=== PATIENT | male | born 1970 | race Caucasian/White ===

== ENCOUNTER 2017-10-26 17:54 | Inpatient (IN) | payer OTHER ==
[~2017-10-26] VITALS: Ht 152.4 cm; Wt 103.4 kg
[2017-10-26 19:05] LABS: BASOPHIL % 0.1 % (0-2); PLATELET COUNT 188 x10^3mcL (130-400); RED CELL DISTRIBUTION WIDTH 19.7 % (11.5-14.5)
[2017-10-26 19:12] LABS: CALCIUM 8.6 mg/dL (8.5-10.1); CARBON DIOXIDE 27.1 mmol/L (21-32); CHLORIDE SERUM 99 mmol/L (98-107); CREATININE SERUM 1.1 mg/dL (0.7-1.3); GFR1 > 60 mL/min; GLUCOSE SERUM 130 mg/dL (74-106); POTASSIUM SERUM 3.7 mmol/L (3.5-5.1); SODIUM SERUM 136 mmol/L (136-145)
[2017-10-26 19:17] LABS: ALKALINE PHOSPHATASE 144 U/L (46-116); ALT/SGPT 68 U/L (16-63); AST/SGOT 36 U/L (15-37); BILIRUBIN TOTAL 1.2 mg/dL (0.20-1.00); TOTAL PROTEIN, SERUM 8.2 g/dL (6.4-8.2)
[2017-10-26 19:19] LABS: ALBUMIN 3.3 g/dL (3.4-5.0)
[2017-10-26] MEDS ORDERED: LOSARTAN POTASS1 TAB PO (19:49)
[2017-10-26 20:13] LABS: UA SPECIFIC GRAVITY 1.025 (1.005-1.035); microscopic required? YES; urine erythrocyte 3+ (NEGATIVE)
[2017-10-26 20:33] VITALS: BP 97/62
[2017-10-26 20:37] VITALS: Ht 152.4 cm; Wt 103.4 kg
[2017-10-27] VITALS (8 sets, daily range): BP systolic 96–105; BP diastolic 56–68
[2017-10-27 06:04] LABS: BASOPHIL % 0.3 % (0-2); PLATELET COUNT 182 x10^3mcL (130-400)
[2017-10-27 06:19] LABS: CALCIUM 8.5 mg/dL (8.5-10.1); CARBON DIOXIDE 29.6 mmol/L (21-32); CHLORIDE SERUM 103 mmol/L (98-107); CREATININE SERUM 1.1 mg/dL (0.7-1.3); GFR1 > 60 mL/min; GLUCOSE SERUM 110 mg/dL (74-106); POTASSIUM SERUM 4.2 mmol/L (3.5-5.1); SODIUM SERUM 139 mmol/L (136-145)
[2017-10-27 06:40] LABS: RED CELL DISTRIBUTION WIDTH 19.4 % (11.5-14.5)
[2017-10-27 14:34] LABS: BASOPHIL % 0.2 % (0-2); PLATELET COUNT 182 x10^3mcL (130-400)
[2017-10-27 14:36] LABS: RED CELL DISTRIBUTION WIDTH 19.1 % (11.5-14.5)
[2017-10-27 14:43] LABS: CALCIUM 8.5 mg/dL (8.5-10.1); CHLORIDE SERUM 100 mmol/L (98-107); CREATININE SERUM 1.3 mg/dL (0.7-1.3); GFR1 > 60 mL/min; GLUCOSE SERUM 125 mg/dL (74-106); POTASSIUM SERUM 3.8 mmol/L (3.5-5.1); SODIUM SERUM 136 mmol/L (136-145)
[2017-10-27 15:44] LABS: APPEARANCE CSF CLEAR; COLOR CSF COLORLESS
[2017-10-27 15:45] LABS: RBC CSF 21 /cumm (0); WBC CSF 4 /cumm (0-5)
[2017-10-27 16:15] LABS: TOTAL PROTEIN CSF 35.5 mg/dL (15-45)
== END 2017-10-27 19:19 | disposition home or self-care (01) | DRG 463 ==
LOC: ED 17:54 → MU 19:23
PROVIDERS: Emergency Medicine; Internal Medicine; Internal Medicine Pulmonary Disease
PROC: 009U3ZX Drainage of Spinal Canal, Percutaneous Approach, Diagnostic (ICD-10-PCS; principal; 2017-10-27)
PROC: B01B1ZZ Fluoroscopy of Spinal Cord using Low Osmolar Contrast (ICD-10-PCS; 2017-10-27)
DX: N39.0 Urinary tract infection, site not specified (principal); I10 Essential (primary) hypertension; E11.9 Type 2 diabetes mellitus without complications
CPT/HCPCS: 62272; 82962; J0456; J0696; J1650; J2405; J3010; J7030; Q0092